=== PATIENT | female | born 1970 | race Caucasian/White ===

== ENCOUNTER 2021-09-08 18:09 | Emergency (ER) | payer MEDICAID, SELFPAY ==
[2021-09-08 18:57] VITALS: BP 144/96; PULSE 98; RESP 20; O2SAT 95; BMI 24.1
--- NOTE | 2021-09-08 18:58 | ED_ITS ---
Documented by User: ZOE Phan 09/08/21 20:31 HPI - General Adult General: Chief complaint: General Medical Stated complaint: blood pressure, spider veins Time Seen by Provider: 09/08/21 18:57 History of Present Illness: A 51-year-old female comes in today for complaints of high blood pressure, dyspnea, and right lower leg swelling and calf pain. 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 Patient had COVID at the end of May and June and since then has had increased difficulty with shortness of breath. Patient appears nontoxic. Patient appears in no pain. Associated symptoms: Reports dyspnea; Deny chest pain, nausea or vomiting Review of Systems General: Reports: 10 or more systems reviewed and unremarkable except in HPI and below Const: Denies: fever(s) Card: Denies: chest pain Resp: Reports: dyspnea GI: Denies: nausea or vomiting Musc: Reports: extremity pain Skin/Breast: Reports: erythema (Right lower extremity) Physical Exam Const: COMMON NORMALS: alert HENMT: COMMON NORMALS: normocephalic HEAD & SCALP: normocephalic Neck/C-Spine: COMMON NORMALS: full ROM Resp: COMMON NORMALS: normal respiratory effort and clear to auscultation bilaterally AUSCULTATION: clear to auscultation bilaterally Cardio: COMMON NORMALS: regular rate and regular rhythm RATE: regular rate RHYTHM: regular rhythm Back/Pelvis: COMMON NORMALS: thoracic and lumbar spine normal to inspection Extremity: RIGHT LOWER EXTREMITY: Yes lower leg (Engorged varicosities, no significant redness or induration, minimal swelli) Right lower leg: Yes inspe ction, Yes palpation and Yes neurovascular exam LEFT LOWER EXTREMITY: Yes lower leg (Mild varicose veins) Left lower leg: Yes inspection, Yes palpation and Yes neurovascular exam Neuro: SENSORIUM/ORIENTATION: Yes alert Skin: RASHES: rashes noted (Mild bilateral lower extremity redness) Course Vital Signs: Vital signs: Vital Signs Pulse Rate 82 09/08/21 20:54 Respiratory Rate 20 H 09/08/21 20:54 Blood Pressure 137/78 09/08/21 20:54 Pulse Oximetry 97 09/08/21 20:54 [facility] - General Adult Medical Decision Making 51-year-old female comes in today with complaints of right calf pain and elevation of blood pressure. On exam patient has lung sounds decreased in the bases, vital signs note a mild elevation of blood pressure at 144, mild swelling and venous varicosity engorgement of the right lower extremity. Differential diagnosis includes DVT, hypertension uncontrolled, venous insufficiency, varicose veins. Reviewed exam with patient with recommendations for treatment and follow-up. Ultrasound was negative for DVT, chest x-ray was unremarkable, CBC noted some polycythemia most likely due to patient's chronic cigarette smoking, CMP was unremarkable. Patient reported understanding of care plan and need for follow-up with primary care Lab Data : 09/08/21 19:20 09/08/21 19:20 Radiology Impressions Chest X-Ray 09/08/21 19: IMPRESSION: Probable hyperinflation/emphysema. No obvious consolidation. Venous Duplex 09/08/21: IMPRESSION: 1. No evidence of DVT. 2. Small superficial varices in the calf region. Laboratory Results WBC 8.1 10^3/uL (4.0-10.0) 09/08/21 19:20 RBC 5.58 10^6/uL (4.1-5.3) H 09/08/21 19:20 Hgb 16.3 g/dL (11.5-15.3) H 09/08/21 19:20 Hct 51.8 % (37.0-47.0) H 09/08/21 19:20 MCV 92.8 fl (81-99) 09/08/21 19:20 MCH 29.2 pg (28.0-34.0) 09/08/21 19:20 MCHC 31.5 g/dL (30.0-36.0) 09/08/21 19:20 RDW 12.1 % (12.1-15.1) 09/08/21 19:20 Plt Count 313 10^3/cmm (130-400) 09/08/21 19:20 MPV 11.1 fL (7.4-10.4) H 09/08/21 19:20 Neut % (Auto) 60.0 % 09/08/21 19:20 Lymph % (Auto) 26.6 % 09/08/21 19:20 [place] % (Auto) 10.9 % 09/08/21 19:20 Eos % (Auto) 1.6 % 09/08/21 19:20 Baso % (Auto) 0.5 % 09/08/21 19:20 Neut # (Auto) 4.84 10^3/uL (1.8-7.7) 09/08/21 19:20 Lymph # (Auto) 2.1 10^3/uL (0.8-4.8) 09/08/21 19:20 [place] # (Auto) 0.9 10^3/uL (0.2-0.9) 09/08/21 19:20 Eos # (Auto) 0.1 10^3/uL (0.0-0.8) 09/08/21 19:20 Baso # (Auto) 0.0 10^3/uL (0.0-0.1) 09/08/21 19:20 Nucleated RBC % (auto) 0 % 09/08/21 19:20 Nucleated RBCs # 0.0 /100WBC 09/08/21 19:20 Sodium 135 mmol/L (136-145) L 09/08/21 19:20 Potassium 3.8 mmol/L (3.5-5.1) 09/08/21 19:20 Chloride 94 mmol/L (98-107) L 09/08/21 19:20 Carbon Dioxide 32 mmol/L (22-29) H 09/08/21 19:20 Anion Gap 12.8 (5-19) 09/08/21 19:20 BUN 17 mg/dL (6-20) 09/08/21 19:20 Creatinine 0.7 mg/dL (0.5-0.9) 09/08/21 19:20 GFR Calculation 88.6 mL/min (90-130) L 09/08/21 19:20 Glucose 92 mg/dL (65-115) 09/08/21 19:20 Calculated Osmolality 281 mOsm/kg (285-295) L 09/08/21 19:20 Calcium 9.6 mg/dL (8.5-10.5) 09/08/21 19:20 Total Bilirubin 0.3 mg/dL (0.15-1.2) 09/08/21 19:20 AST 13 U/L (0-32) 09/08/21 19:20 ALT 13 U/L (0-33) 09/08/21 19:20 Alkaline Phosphatase 84 IU/L (35-105) 09/08/21 19:20 Total Protein 7.4 g/dL (6.6-8.7) 09/08/21 19:20 Albumin 4.4 g/dL (3.5-5.2) 09/08/21 19:20 Globulin 3.0 g/dL (1.3-4.6) 09/08/21 19:20 Discharge Plan Discharge Patient Disposition: Home Clinical Impression: Pain of right calf Hypertension Qualifiers: Hypertension type: unspecified Qualified Code(s): I10 - Essential (primary) hypertension Varicose vein of leg Qualifiers: Varicose vein complication: pain Laterality: bilateral Qualified Code(s): I83.813 - Varicose veins of bilateral lower extremities with pain Condition: Stable Discharge Orders: Discharge ED (Routine); Ordered 09/08/21 Ordered By: Mic Bryant Discharge Diet: Usual diet Discharge Activity: Increase activity as tolerated Patient Instructions: Varicose Veins Activity Restrictions/Additional Instructions: Home and rest. I strongly encourage you to stop smoking. Use acetaminophen and ibuprofen for pain. Use compression socks to help with swelling and varicosities. Follow-up with primary care for further evaluation and treatment of your hypertension. Return to ER for new concerns. Coding Level of Care Code ED Bead Wire Taper for Chg Fwd Exam Comprehensive Documented by User: Tu Hensley DO 09/09/21 00:51 HPI - General Adult General: Chief complaint: General Medical Stated complaint: blood pressure, spider veins Time Seen by Provider: 09/08/21 18:57 Course Vital Signs: Vital signs: Vital Signs Pulse Rate 82 09/08/21 20:54 Respiratory Rate 20 H 09/08/21 20:54 Blood Pressure 137/78 09/08/21 20:54 Pulse Oximetry 97 09/08/21 20:54 MDM - General Adult Medical Decision Making 51-year-old female comes in today with complaints of right calf pain and elevation of blood pressure. On exam patient has lung sounds decreased in the bases, vital signs note a mild elevation of blood pressure at 144, mild swelling and venous varicosity engorgement of the right lower extremity. Differential diagnosis includes DVT, hypertension uncontrolled, venous insufficiency, varicose veins. Reviewed exam with patient with recommendations for treatment and follow-up. Ultrasound was negative for DVT, chest x-ray was unremarkable, CBC noted some polycythemia most likely due to patient's chronic cigarette smoking, CMP was unremarkable. Patient reported understanding of care plan and need for follow-up with primary care This patient was originally seen by ZOE Ramirez.? I agree with his history, evaluation, and treatment. Lab Data : 09/08/21 19:20 09/08/21 19:20 Radiology Impressions Chest X-Ray 09/08/21 19: IMPRESSION: Probable hyperinflation/emphysema. No obvious consolidation. Venous Duplex 09/08/21 19: IMPRESSION: 1. No evidence of DVT. 2. Small superficial varices in the calf region. Laboratory Results WBC 8.1 10^3/uL (4.0-10.0) 09/08/21 19:20 RBC 5.58 10^6/uL (4.1-5.3) H 09/08/21 19:20 Hgb 16.3 g/dL (11.5-15.3) H 09/08/21 19:20 Hct 51.8 % (37.0-47.0) H 09/08/21 19:20 MCV 92.8 fl (81-99) 09/08/21 19:20 MCH 29.2 pg (28.0-34.0) 09/08/21 19:20 MCHC 31.5 g/dL (30.0-36.0) 09/08/21 19:20 RDW 12.1 % (12.1-15.1) 09/08/21 19:20 Plt Count 313 10^3/cmm (130-400) 09/08/21 19:20 MPV 11.1 fL (7.4-10.4) H 09/08/21 19:20 Neut % (Auto) 60.0 % 09/08/21 19:20 Lymph % (Auto) 26.6 % 09/08/21 19:20 [place] % (Auto) 10.9 % 09/08/21 19:20 Eos % (Auto) 1.6 % 09/08/21 19:20 Baso % (Auto) 0.5 % 09/08/21 19:20 Neut # (Auto) 4.84 10^3/uL (1.8-7.7) 09/08/21 19:20 Lymph # (Auto) 2.1 10^3/uL (0.8-4.8) 09/08/21 19:20 [place] # (Auto) 0.9 10^3/uL (0.2-0.9) 09/08/21 19:20 Eos # (Auto) 0.1 10^3/uL (0.0-0.8) 09/08/21 19:20 Baso # (Auto) 0.0 10^3/uL (0.0-0.1) 09/08/21 19:20 Nucleated RBC % (auto) 0 % 09/08/21 19:20 Nucleated RBCs # 0.0 /100WBC 09/08/21 19:20 Sodium 135 mmol/L (136-145) L 09/08/21 19:20 Potassium 3.8 mmol/L (3.5-5.1) 09/08/21 19:20 Chloride 94 mmol/L (98-107) L 09/08/21 19:20 Carbon Dioxide 32 mmol/L (22-29) H 09/08/21 19:20 Anion Gap 12.8 (5-19) 09/08/21 19:20 BUN 17 mg/dL (6-20) 09/08/21 19:20 Creatinine 0.7 mg/dL (0.5-0.9) 09/08/21 19:20 GFR Calculation 88.6 mL/min (90-130) L 09/08/21 19:20 Glucose 92 mg/dL (65-115) 09/08/21 19:20 Calculated Osmolality 281 mOsm/kg (285-295) L 09/08/21 19:20 Calcium 9.6 mg/dL (8.5-10.5) 09/08/21 19:20 Total Bilirubin 0.3 mg/dL (0.15-1.2) 09/08/21 19:20 AST 13 U/L (0-32) 09/08/21 19:20 ALT 13 U/L (0-33) 09/08/21 19:20 Alkaline Phosphatase 84 IU/L (35-105) 09/08/21 19:20 Total Protein 7.4 g/dL (6.6-8.7) 09/08/21 19:20 Albumin 4.4 g/dL (3.5-5.2) 09/08/21 19:20 Globulin 3.0 g/dL (1.3-4.6) 09/08/21 19:20 Discharge Plan Discharge Patient Disposition: Home Clinical Impression: Pain of right calf Hypertension Qualifiers: Hypertension type: unspecified Qualified Code(s): I10 - Essential (primary) hypertension Varicose vein of leg Qualifiers: Varicose vein complication: pain Laterality: bilateral Qualified Code(s): I83.813 - Varicose veins of bilateral lower extremities with pain Condition: Stable Discharge Orders: Discharge ED (Routine); Ordered 09/08/21 Ordered By: Mic Bryant Discharge Diet: Usual diet Discharge Activity: Increase activity as tolerated Patient Instructions: Varicose Veins Activity Restrictions/Additional Instructions: Home and rest. I strongly encourage you to stop smoking. Use acetaminophen and ibuprofen for pain. Use compression socks to help with swelling and varicosities. Follow-up with primary care for further evaluation and treatment of your hypertension. Return to ER for new concerns. Coding Level of Care Code ED Bead Wire Taper for Cruz Fwd Exam Comprehensive
--- NOTE | 2021-09-08 19:17 | XRR_ITS ---
PROCEDURE INFORMATION: Exam: XR Chest Exam date and time: 09/08/2021 7:25 PM Age: 51 years old Clinical indication: Shortness of breath; Additional info: Dyspnea TECHNIQUE: Imaging protocol: XR of the chest. Views: 1 view. COMPARISON: No relevant prior studies available. FINDINGS: Lungs: Mild hyperinflation/probable emphysema. No obvious lung consolidation. Pleural spaces: Unremarkable. No pleural effusion. No pneumothorax. Heart/Mediastinum: No cardiomegaly. Bones/joints: No acute findings. XR/XR chest 1V portable [id number] IMPRESSION: Probable hyperinflation/emphysema. No obvious consolidation.
--- NOTE | 2021-09-08 19:17 | USR_ITS ---
PROCEDURE INFORMATION: Exam: US Duplex Right Lower Extremity Veins, Limited Exam date and time: 09/08/2021 7:31 PM Age: 51 years old Clinical indication: Pain; Swelling (edema) of limb; Lower extremity, right; Leg, lower; Prior surgery; Surgery date: 6+ months; Surgery type: Removal of veins; Additional info: Calf pain, leg swelling TECHNIQUE: Imaging protocol: Real-time Duplex ultrasound of the Right Lower Extremity with 2-D narvaez scale, color Doppler flow and spectral waveform analysis with image documentation. Limited exam was focused on the right lower extremity veins. COMPARISON: No relevant prior studies available. FINDINGS: Right deep veins: Unremarkable. The common femoral, femoral, proximal profunda femoral and popliteal veins are patent without thrombus. Normal Doppler waveforms. Normal compressibility and/or augmentation response. Right superficial veins: Small superficial varices are present in the calf region. Saphenofemoral junction is patent without thrombus. Soft tissues: Unremarkable. US/[place] [id number] IMPRESSION: 1. No evidence of DVT. 2. Small superficial varices in the calf region.
[2021-09-08 19:48] LABS: Basophils % 0.5 %; Eosinophils # 0.1 10^3/uL (0.0-0.8); Eosinophils % 1.6 %; Hematocrit 51.8 % (37.0-47.0); Hemoglobin 16.3 g/dL (11.5-15.3); Lymphocytes # 2.1 10^3/uL (0.8-4.8); Lymphocytes % 26.6 %; Mean Corpuscular HGB Conc 31.5 g/dL (30.0-36.0); Mean Corpuscular Hemoglobin 29.2 pg (28.0-34.0); Mean Corpuscular Volume 92.8 fl (81-99); Mean Platelet Volume 11.1 fL (7.4-10.4); Monocytes # 0.9 10^3/uL (0.2-0.9); Monocytes % 10.9 %; Neutrophils # 4.84 10^3/uL (1.8-7.7); Nucleated Red Blood Cells % 0 %; Platelet Count 313 10^3/cmm (130-400); Red Blood Count 5.58 10^6/uL (4.1-5.3); Red Cell Distribution Width 12.1 % (12.1-15.1); White Blood Count 8.1 10^3/uL (4.0-10.0)
[2021-09-08 20:06] LABS: Alanine Aminotransferase 13 U/L (0-33); Albumin Level 4.4 g/dL (3.5-5.2); Alkaline Phosphatase 84 IU/L (35-105); Anion Gap 12.8 (5-19); Aspartate Amino Transferase 13 U/L (0-32); Blood Urea Nitrogen 17 mg/dL (6-20); Calcium 9.6 mg/dL (8.5-10.5); Carbon Dioxide 32 mmol/L (22-29); Chloride 94 mmol/L (98-107); Glomerular Filtration Rate 88.6 mL/min (90-130); Glucose 92 mg/dL (65-115); Osmolality Calculated 281 mOsm/kg (285-295); Potassium 3.8 mmol/L (3.5-5.1); Sodium 135 mmol/L (136-145); Total Bilirubin 0.3 mg/dL (0.15-1.2); Total Protein 7.4 g/dL (6.6-8.7)
[2021-09-08 20:54] VITALS: BP 137/78; PULSE 82; RESP 20; O2SAT 97
== END 2021-09-08 20:28 | disposition home or self-care (01) ==
PROVIDERS: Emergency Provider Nurse Practitioner Family
DX: I83.813 Varicose veins of bilateral lower extremities with pain (principal); M79.661 Pain in right lower leg; I10 Essential (primary) hypertension
CPT/HCPCS: 71045; 80053; 85025; 93971; 99283

== ENCOUNTER → 2024-04-07 14:49 | Outpatient (BNVA) | payer MEDICAID, SELFPAY | PROVIDERS: Referring Provider Nurse Practitioner Family; Visit Provider Internal Medicine | DX: R07.9 Chest pain, unspecified (principal) | CPT/HCPCS: 93005 ==